=== PATIENT | female | born 1945 | race American Indian/Alaskan Native ===

== ENCOUNTER 2018-01-11 07:03 | Outpatient (CLI) | payer MEDICARE, OTHER ==
--- NOTE | 2018-01-11 08:25 | Mammography Report ---
BILATERAL MAMMOGRAM: FINDINGS: The breast tissue is heterogeneously dense, which could obscure detection of small masses (approximately 50%-75% glandular). No mass, distortion, suspicious calcification, or skin change is seen. No interval change when compared to prior examination in January 2017. CAD was utilized. IMPRESSION: Negative mammogram. There is no mammographic evidence of malignancy. RECOMMENDATION: Follow-up per ACS guidelines. BI-RADS CATEGORY: 1 = Negative ACR BI-RADS MAMMOGRAPHIC CODES: 0 = Needs additional imaging evaluation; 1 = Negative; 2 = Benign; 3 = Probably benign; 4 = Suspicious; 5 = Malignant; 6 = Known biopsy-proven malignancy COMMENT: 1. Dense breast tissue, i.e., adenosis, fibrocystic changes, etc., may obscure an underlying neoplasm. 2. Approximately 10% of cancers are not detected with mammography. 3. A negative mammography report should not delay biopsy if a clinically suspicious mass is present. COMMENT: Patient follow-up letters are generated in [employer].
== END 2018-01-11 07:04 | disposition home or self-care (01) ==
LOC: MAMMO 07:03
PROVIDERS: ATTEND Family Medicine
DX: Z12.31 Encounter for screening mammogram for malignant neoplasm of breast (principal)
CPT/HCPCS: 77067

== ENCOUNTER 2019-02-19 07:58 | Outpatient (CLI) | payer MEDICARE, OTHER ==
--- NOTE | 2019-02-19 09:07 | Mammography Report ---
LEFT DIGITAL DIAGNOSTIC MAMMOGRAM : 02/19/19 07:58:00 CLINICAL: Recalled for asymmetry. COMPARISON:01/30/19 screening FINDINGS: Additional mammographic views were performed and are negative. IMPRESSION: Negative Mammogram. BI-RADS CATEGORY: 1 -- Negative RECOMMENDATION: Routine mammographic screening in one year. ACR BI-RADS MAMMOGRAPHIC CODES: 0 = Needs additional imaging evaluation; 1 = Negative; 2 = Benign; 3 = Probably benign; 4 = Suspicious; 5 = Malignant; 6 = Known biopsy-proven malignancy COMMENT: 1. Dense breast tissue, i.e., adenosis, fibrocystic changes, etc., may obscure an underlying neoplasm. 2. Approximately 10% of cancers are not detected with mammography. 3. A negative mammography report should not delay biopsy if a clinically suspicious mass is present. COMMENT: Patient follow-up letters are generated via our [employer] application.
== END 2019-02-19 07:59 | disposition home or self-care (01) ==
LOC: MAMMO 07:58
PROVIDERS: ATTEND Family Medicine
DX: R92.8 Other abnormal and inconclusive findings on diagnostic imaging of breast (principal)

== ENCOUNTER 2020-09-05 12:54 | Outpatient (CLI) | payer MEDICARE, OTHER ==
--- NOTE | 2020-09-05 15:32 | Mammography Report ---
DIGITAL SCREENING MAMMOGRAM WITH CAD, 09/05/2020 INDICATION: Routine screening mammography. ROUTINE TECHNIQUE: Digital bilateral 2D mammography was obtained in the craniocaudal and mediolateral obliq ue projections. This examination was interpreted with the benefit of Computer-Aided Detection analysi s. COMPARISON: 01/30/2019 FINDINGS: Breast Density: The breasts are extremely dense, which lowers the sensitivity of mammography. There is no evidence of dominant mass, suspicious calcifications or architectural distortion in the l eft breast. There is a question of developing architectural distortion in the posterior depth of the central right breast on MLO view at the level the nipple. IMPRESSION: Questionable developing architectural distortion on the right Follow up recommendation: Right spot compression views and ultrasound if needed BI-RADS Category 0: Incomplete. Needs additional imaging evaluation and/or prior mammograms for bruce rison. A "normal" or negative report should not discourage follow up or biopsy of a clinically significant f inding. A written summary of these findings will be mailed to the patient. The patient will be entered into a mammography reporting system which will generate a reminder letter for the patient's next appointmen t at the appropriate interval. The [employer] recommends yearly mammograms starting at age 40 and continuing as l maria e as a woman is in good health. Breast MRI is recommended for women with an approximate 20-25% or greater lifetime risk of breast cancer, including women with a strong family history of breast or ova yasemin cancer or who have been treated for Hodgkin's disease. Signer Name: Alen King MD Signed: 09/05/2020 3:28 PM Workstation Name: [id number]
== END 2020-09-05 12:55 | disposition home or self-care (01) ==
LOC: MAMMO 12:54
PROVIDERS: ATTEND Family Medicine
DX: Z12.31 Encounter for screening mammogram for malignant neoplasm of breast (principal)
CPT/HCPCS: 77067

== ENCOUNTER 2020-09-29 11:09 | Outpatient (CLI) | payer MEDICARE, OTHER ==
--- NOTE | 2020-09-29 12:55 | Ultrasound Report ---
RIGHT DIGITAL DIAGNOSTIC MAMMOGRAM WITH CAD CONVENTIONAL, 09/29/2020 RIGHT LIMITED BREAST ULTRASOUND CLINICAL INFORMATION / INDICATION: Patient presents as a callback from screening mammogram for furthe r evaluation of a possible area of distortion in the right breast. ABN MAMMO TECHNIQUE: Digital right mammographic imaging was performed. Spot compression views were obtained. Li mited ultrasound was performed. This examination was interpreted with the benefit of Computer-Aided D etection (CAD) analysis. COMPARISON: Prior mammogram 09/05/2020 FINDINGS: Breast Density: The breasts are extremely dense, which lowers the sensitivity of mammography. MAMMOGRAPHIC FINDINGS: The previously questioned area of distortion in the central right breast is mu ch less conspicuous on additional views, suggesting overlapping fibroglandular tissue. Targeted ultra sound performed for confirmation. ULTRASOUND FINDINGS: Targeted ultrasound evaluation was performed of the area of interest. Targeted ultrasound of the central, 3:00, and 9:00 right breast reveals dense fibroglandular tissue. No suspi cious cystic or solid lesion identified. IMPRESSION: 1. The previously questioned area of possible distortion in the right breast is much less conspicuous on additional views and without sonographic correlate, compatible with overlapping fibroglandular ti ssue. No suspicious mammographic or sonographic abnormality identified. Follow up recommendation: Routine yearly BI-RADS Category 1: Negative. A "normal" or negative report should not discourage follow up or biopsy of a clinically significant f inding. A written summary of these findings will be mailed to the patient. The patient will be entered into a mammography reporting system which will generate a reminder letter for the patient's next appointmen t at the appropriate interval. According to the [employer], yearly mammograms are recommended starting at age 40 and continuing as long as a woman is in good health. Breast MRI is recommended for women with an myles roximately 20-25% or greater lifetime risk of breast cancer, including women with a strong family his tory of breast or ovarian cancer and women who have been treated for Hodgkin's disease. Signer Name: Raine Schmitt MD Signed: 09/29/2020 12:51 PM Workstation Name: [email or web address]
== END 2020-09-29 11:10 | disposition home or self-care (01) ==
LOC: MAMMO 11:09
PROVIDERS: ATTEND Family Medicine
DX: R92.8 Other abnormal and inconclusive findings on diagnostic imaging of breast (principal)

== ENCOUNTER 2021-09-21 10:39 | Outpatient (CLI) | payer MEDICARE, OTHER ==
--- NOTE | 2021-09-22 11:55 | Mammography Report ---
DIGITAL SCREENING MAMMOGRAM WITH CAD, 09/21/2021 CLINICAL INFORMATION / INDICATION: Routine screening mammography. TECHNIQUE: Digital bilateral 2D mammography was obtained in the craniocaudal and mediolateral obliqu e projections. This examination was interpreted with the benefit of Computer-Aided Detection analysis . COMPARISON: Prior mammograms 09/05/2020 and 01/30/2019 FINDINGS: Breast Density: The breasts are extremely dense, which lowers the sensitivity of mammography. No dominant mass, suspicious calcifications, or architectural distortion in either breast. There has been no significant change compared with the prior examinations. IMPRESSION: No mammographic evidence of malignancy. Follow up recommendation: Routine yearly BI-RADS Category 1: Negative. A "normal" or negative report should not discourage follow up or biopsy of a clinically significant f inding. A written summary of these findings will be mailed to the patient. The patient will be entered into a mammography reporting system which will generate a reminder letter for the patient's next appointmen t at the appropriate interval. The [employer] recommends yearly mammograms starting at age 40 and continuing as l maria e as a woman is in good health. Breast MRI is recommended for women with an approximate 20-25% or greater lifetime risk of breast cancer, including women with a strong family history of breast or ova yasemin cancer or who have been treated for Hodgkin's disease. Signer Name: Raine Schmitt MD Signed: 09/22/2021 11:51 AM Workstation Name: [id number]
== END 2021-09-21 10:40 | disposition home or self-care (01) ==
LOC: SPVWC 10:39
PROVIDERS: ATTEND Family Medicine
DX: Z12.31 Encounter for screening mammogram for malignant neoplasm of breast (principal)
CPT/HCPCS: 77067